=== PATIENT | male | born 1955 | race Caucasian/White ===

== ENCOUNTER 2018-11-03 21:52 | Inpatient (IN) | payer BC, OTHER ==
[~2018-11-03] VITALS: Ht 180.3 cm; Wt 106.3 kg
[~2018-11-03 21:52] MED LIST: Advil200 M1 PO; FISH OIL 1,0001 EAC1; FLONASE ALLERG9.9 ML; HYDR1TAB94 PO; IRRISO IR; LISHYD2012 PO; LISI5 PO; PYRI100 PO; Prinivil10 MG PO; Pyridium100 MG; SERT25 PO; [UNRECOGNIZED DRUG - REMARK]; [UNRECOGNIZED DRUG - REMARK]
[2018-11-03 22:05] LABS: Calcium, Ionized (POC) 1.21 mmol/L (1.10-1.46); Chloride (POC) 102 mmol/L (98-108); Creatinine (POC) 1.4 mg/dL (0.8-1.3); Glucose (ISTAT POC) 277 mg/dL (70-99); Hemoglobin (POC) 12.9 g/dL (13.5-17.5); Potassium (POC) 4.2 mmol/L (3.5-5.5); Sodium (POC) 138 mmol/L (135-148); Total CO2 (POC) 21 mmol/L (21-32)
[2018-11-03 22:12] LABS: Hematocrit 40.6 % (37.0-53.0); Hemoglobin 12.8 g/dL (13.5-17.5); Mean Corpuscular HGB 30.9 pg (26.0-34.0); Mean Corpuscular HGB Conc 31.5 g/dL (31.5-36.5); Mean Corpuscular Volume 98 fL (80-100); Mean Platelet Volume 11.3 fL (9.1-12.4); NRBC ABSOLUTE 0.07 K/mm3 (0.00-0.02); NRBC Auto 0.3 /100 WBC (0.0-0.2); Platelet Count 236 K/mm3 (150-400); RDW Coefficient Variation 12.6 % (11.7-14.2); RDW Standard Deviation 45.3 fL (35.1-46.3); Red Blood Cell Count 4.14 M/mm3 (4.30-5.90); White Blood Cell Count 21.11 K/mm3 (4.00-11.30)
[2018-11-03 22:26] LABS: Alanine Aminotransfer (ALT/SGP 188 U/L (12-78); Albumin, Blood 2.8 g/dL (3.4-5.0); Albumin/Globulin Ratio 1.1 (0.8-1.8); Alk Phos 98 U/L (50-136); Anion Gap 14 mmol/L (6-16); Aspartate Aminotrans (AST/SGOT 176 U/L (12-37); Bilirubin, Total 0.3 mg/dL (0.1-1.0); Blood Urea Nitrogen 24 mg/dL (8-24); CO2, Blood 22 mmol/L (21-32); Calcium, Blood 8.8 mg/dL (8.5-10.1); Chloride, Blood 106 mmol/L (98-108); Creatinine, Blood 1.26 mg/dL (0.60-1.20); Globulin, Blood 2.5 g/dL (2.2-4.0); Glomerular Filtration Rate >60 (60-); Glucose, Blood 290 mg/dL (70-99); Potassium, Blood 4.3 mmol/L (3.5-5.5); Sodium, Blood 142 mmol/L (136-145); Total Protein, Blood 5.3 g/dL (6.4-8.2)
[2018-11-03 22:31] LABS: BAND PERCENT MAN 13 % (0-8); BASOPHILS PERCENT MAN 0 % (0-2); EOSINOPHILS ABSOLUTE MAN 0.21 K/mm3 (0.00-0.68); EOSINOPHILS PERCENT MAN 1 % (0-6); LYMPHOCYTES ABSOLUTE MAN 7.59 K/mm3 (0.84-5.20); LYMPHOCYTES PERCENT MAN 36 % (21-46); METAMYELOCYTE ABSOLUTE MAN 1.26 K/mm3 (0.00-0.00); METAMYELOCYTE PERCENT MAN 6 % (0-0); MONOCYTES ABSOLUTE MAN 0.42 K/mm3 (0.16-1.47); MONOCYTES PERCENT MAN 2 % (4-13); MYELOCYTE ABSOLUTE MAN 0.84 K/mm3 (0.00-0.00); MYELOCYTE PERCENT MAN 4 % (0-0); NEUTROPHILS ABSOLUTE MAN 10.76 K/mm3 (1.96-9.15); SEG NEUTROPHILS PERCENT MAN 38 % (41-73); TOTAL CELLS COUNTED 100
[2018-11-03 22:32] LABS: PCO2 Arterial 69.8 mmHg (35-45); PO2 Arterial 169 mmHg (80-100); pH Blood Arterial 7.02 (7.35-7.45)
[2018-11-03 23:05] LABS: International Normalized Ratio 1.42; Prothrombin Time Results 14.6 Sec (9.7-11.5)
[2018-11-04] MEDS ORDERED: SERT100 (00:25)
[2018-11-04] MEDS ORDERED: SERT100 PO (00:25)
--- NOTE | 2018-11-04 01:32 | NUR ---
SHIFT NOTE: PT ARRIVED TO ICU ROOM 13 11/03/18 AT 2347 VIA GURNEY. PT INTUBATED WITH EPINEPHRINE gtt 10mcg/min; COMMUNITY PRODUCT SPECIALIST STATED THAT THE LEVOPHED gtt STOPPED IN ER SINCE BP 139/XX AND MAPS IN 90'S; SANDOSTATIN BOLUS COMPLETED ON ARRIVAL. PT HAD NOT BEEN ON SEDATION AND REMAINED UNRESPONSIVE. PUPILS FIXED AND DOLL GAZE PRESENT AT 3mm BILATERALLY. BLOOD PRESSURES TAKEN ON LEFT CALF FROM ED WITH NO READING ON ARRIVAL, LEFT ARM, RIGHT ARM AND RIGHT CALF WITH BP 63/37 AND 72/28, LEVOPHED RESTARTED AT ED RATE OF 2.5mcg/min. BP REMAINED NON-DETECTABLE UNTIL 0026 OF 109/79 MAP 103 LEVOPHED AT THAT TIME AT 7 mcg/min). BP THEREAFTER NON-DETECTABLE. DR. GLAINDO CALLED AT 0050 FOR ARTLINE PLACEMENT AND GAVE ORDERS TO SET UP FOR ARTLINE AND TO INCREASE PRESSORS UNTIL BP OBTAINED OR UNTIL HE ARRIVED. LEVOPHED INCREASED TO 15mcg AT THAT TIME PT WAS IN BRADYCARDIA HR 52-54 (FAMILY AT BEDSIDE AND HAD BEEN SHORTLY AFTER PT ARRIVAL); NURSE CLINICIAN JOHN CALLED AND SPOKE WITH DR. GALINDO SHORTLY AFTER FIRST CALL WITH NEW ORDERS TO BRING PRESSORS TO MAX. RATES VERIFIED WITH NURSE CLINICIAN AND LEVOPHED BROUGHT TO 30mcg/min AND EPINEPHRINE 20mcg/MIN. PT'S HR AT THAT TIME 40'S WITH NO DETECTABLE PULSE. PT RHYTHM V-FIB THEN ASYTOLE. FAMILY REMAINED AT BEDSIDE DURING THIS TIME. TIME 0117. NURSE CLINICIAN NOTIFIED DR. GALINDO, EQUIPMENT MAINTENANCE SUPERVISOR, AND [facility] [employer]. TIME SPEND SPEAKING TO PT'S [id number] WHO STATED SHE WAS THE ONE TO START CPR IN PT'S HOME AND STATED DID NOT KNOW HOW LONG PRIOR TO CPR THE PT WAS STUNG BY THE BEES. JOHN FROM [facility] ARRIVED AND SPOKE WITH FAMILY AND PT'S .
--- NOTE | 2018-11-04 01:54 | NUR ---
Called in at TO to provide guidence and prayer for family. Family in various stages of shock and grief. They responded well to prayer and bereavement financial health counselor. Sanya was selected for arrangements.
== END 2018-11-04 01:17 | DRG 917 ==
LOC: ER 21:52 → ICUW 22:49
PROVIDERS: Emergency Medicine; ADMIT Internal Medicine
PROC: 0BH17EZ Insertion of Endotracheal Airway into Trachea, Via Natural or Artificial Opening (ICD-10-PCS; principal; 2018-11-03)
PROC: 5A1935Z Respiratory Ventilation, Less than 24 Consecutive Hours (ICD-10-PCS; 2018-11-03)
PROC: 5A12012 Performance of Cardiac Output, Single, Manual (ICD-10-PCS; 2018-11-03)
PROC: 3E053XZ Introduction of Vasopressor into Peripheral Artery, Percutaneous Approach (ICD-10-PCS; 2018-11-03)
DX: T63.441A Toxic effect of venom of bees, accidental (unintentional), initial encounter (principal); S22.5XXA Flail chest, initial encounter for closed fracture; R40.2311 Coma scale, best motor response, none, in the field [EMT or ambulance]; R40.2111 Coma scale, eyes open, never, in the field [EMT or ambulance]; R40.2211 Coma scale, best verbal response, none, in the field [EMT or ambulance]; T78.2XXA Anaphylactic shock, unspecified, initial encounter; N17.9 Acute kidney failure, unspecified; K92.2 Gastrointestinal hemorrhage, unspecified; I46.9 Cardiac arrest, cause unspecified; I10 Essential (primary) hypertension; I95.9 Hypotension, unspecified; Z66 Do not resuscitate; Z85.46 Personal history of malignant neoplasm of prostate; R73.9 Hyperglycemia, unspecified; Z51.5 Encounter for palliative care; Z87.891 Personal history of nicotine dependence
CPT/HCPCS: 31720; 36556; 36600; 51702; 71045; 80047; 80053; 82803; 84484; 85014; 85025; 85610; 85730; 86850; 86900; 86901; 92950; 93005; 93010; 94002; 96365-59; 96368; 96375-59; 96376-59; 99285-25; C1751; C9113; J0171; J1200; J2354; J2704; J2930; J7030; J7050; J7060; J7120